=== PATIENT | female | born 1955 | race Caucasian/White ===

== ENCOUNTER 2021-03-08 23:56 | Observation (INO) | payer MEDICARE, BC, SELFPAY ==
--- NOTE | 2021-03-08 | ECG_ITS ---
APPROVED REPORT Exam: Resting ECG HR:83 bpm ECG Measurements Heart Rate 83 AXES NC 186 P 54 QRSd 86 QRS -25 QT 374 T 48 QTc 439 Conclusion Sinus rhythm with marked sinus arrhythmia Late R wave progression Abnormal ECG Electronically signed by : Jono Greco MD 03/09/2021 12:10:47
[2021-03-08 23:56] VITALS: BP 150/97; PULSE 96; RESP 24; TEMP 36.9; O2SAT 87; BMI 25.0
[2021-03-08 23:57] VITALS: BMI 25.0
--- NOTE | 2021-03-08 23:58 | XR_ITS ---
PROCEDURE INFORMATION: Exam: XR Chest Exam date and time: 03/08/2021 11:58 PM Age: 65 years old Clinical indication: Dyspnea; Patient HX: SOA TECHNIQUE: Imaging protocol: XR of the chest. Views: 1 view. COMPARISON: CT ANGIO CHEST PE PROTOCOL 03/09/2021 12:43 AM FINDINGS: Lungs: Emphysema. Granulomatous change. No consolidation. Pleural spaces: Unremarkable. No pleural effusion. No pneumothorax. Heart/Mediastinum: Unremarkable. No cardiomegaly. Bones/joints: Unremarkable. IMPRESSION: No acute findings.
--- NOTE | 2021-03-08 23:58 | CT_ITS ---
PROCEDURE INFORMATION: Exam: CTA Chest With Contrast Exam date and time: 03/08/2021 11:58 PM Age: 65 years old Clinical indication: Dyspnea; Patient HX: SOA TECHNIQUE: Imaging protocol: Computed tomographic angiography of the chest with contrast. 3D rendering (Not supervised by radiologist): MIP and/or 3D reconstructed images were created by the technologist. Radiation optimization: All CT scans at this facility use at least one of these dose optimization techniques: automated exposure control; mA and/or kV adjustment per patient size (includes targeted exams where dose is matched to clinical indication); or iterative reconstruction. Contrast material: ISOVUE; Contrast volume: 75 ml; Contrast route: INTRAVENOUS (IV); COMPARISON: No relevant prior studies available. FINDINGS: Pulmonary arteries: Normal. No pulmonary emboli. Aorta: Unremarkable. No aortic aneurysm. No aortic dissection. Lungs: There is bronchiolar and bronchi wall thickening findings concerning for bronchitis. Scattered atelectasis bilaterally. No pneumonia. Pleural spaces: Unremarkable. No pneumothorax. No pleural effusion. Heart: Unremarkable. No cardiomegaly. No pericardial effusion. Lymph nodes: Small mediastinal and right hilar lymph nodes Intraperitoneal space: Upper abdomen reveals partially imaged cystic lesion. Bones/joints: Unremarkable. No acute fracture. Soft tissues: Unremarkable. IMPRESSION: 1. No pulmonary embolism. 2. No pneumonia. 3. Probable bronchitis. 4. Upper abdomen reveals partially imaged cystic area in the abdomen. Please refer to abdomen pelvis CT done the same day for details
[2021-03-09] VITALS (18 sets, daily range): BP systolic 135–202; BP diastolic 71–106; PULSE 70–92; RESP 17–22; TEMP 36.6–37; O2SAT 90–97; BMI 24.5
[2021-03-09 00:10] LABS: Coronavirus 19, PCR Not Detected (NotDetected); Influenza A, PCR Not Detected (NotDetected); Influenza B, PCR Not Detected (NotDetected)
[2021-03-09 00:14] LABS: Basophils # 0.2 K/mm3 (0-0.2); Basophils % 1.9 % (0.1-2.0); Eosinophils # 0.2 K/mm3 (0.0-0.4); Eosinophils % 1.8 % (0.1-12.0); Hematocrit 42.2 % (37.0-47.0); Hemoglobin 14.1 g/dL (12.2-16.2); Lymphocytes # 2.9 K/mm3 (0.7-4.5); Lymphocytes % 25.5 % (10-50); Mean Corpuscular HGB Conc 33.5 g/dL (31.8-35.4); Mean Corpuscular Hemoglobin 30.2 pg (27.0-31.2); Mean Platelet Volume 8.5 fl (7.4-10.4); Monocytes # 0.4 K/mm3 (0.1-1.0); Monocytes % 3.5 % (1.7-9.3); Neutrophils # 7.5 K/mm3 (1.8-7.8); Neutrophils % 67.3 % (37.0-80.0); Platelet Count 317 K/mm3 (142-424); Red Blood Count 4.68 M/mm3 (4.20-5.40); Red Cell Distribution Width 14.2 % (11.5-17.5); White Blood Count 11.2 K/mm3 (4.8-10.8)
[2021-03-09 00:17] LABS: Chloride 98 mmol/L (98-107); Potassium 3.9 mmoL/L (3.5-5.1); Sodium 139 mmol/L (136-145)
[2021-03-09 00:20] LABS: Alanine Aminotransferase 7 U/L (12-78); Albumin Level 4.6 g/dl (3.5-5.0); Albumin/Globulin Ratio 1.3 (1.1-1.8); Alkaline Phosphatase 88 U/L (38-126); Anion Gap 12.9 mEq/L (5-15); Aspartate Amino Transferase 23 U/L (14-36); Bilirubin,Total 0.3 mg/dl (0.2-1.3); Blood Urea Nitrogen 13 mg/dl (7-17); Calcium 10.1 mg/dl (8.4-10.2); Carbon Dioxide 32 mmol/L (22.0-30.0); Creatinine Clearance Estimated 63 mL/min (50-200); Estimated Glomerular Filt Rate 72 ml/min (>60); GFR (African American) 87 ML/MIN (>60); Globulin 3.5 g/dL (1.3-3.2); Glucose 148 mg/dl (74-100); Total Protein,Serum 8.1 g/dl (6.3-8.2)
[2021-03-09 00:21] LABS: Lactic Acid 0.7 mmol/L (0.7-2.1)
[2021-03-09 00:22] LABS: ABG HCO3 27.6 mmhg (22.0-26.0); ABG Oxygen Saturation 91 % (90-100); ABG PH 7.42 mmol/L (7.35-7.45); ABG PO2 57.9 mmhg (80-100); ABG TCO2 28.9 mmhg (23-27)
[2021-03-09 00:23] LABS: Allen's Test Y; Oxygen 2 %; Source R/R
[2021-03-09 00:26] LABS: C-Reactive Protein 26.8 mg/L (0-4)
--- NOTE | 2021-03-09 00:37 | HMH.EDSOB ---
ED Disposition Clinical Impression: Acute exacerbation of chronic obstructive airways disease, Pelvic mass in female, SIRS (systemic inflammatory response syndrome), Tobacco use Disposition: Admitted As Inpatient Condition on Discharge: Good - Critical Care Critical Care Time: No Attestation: On , the high probability of a clinically significant, sudden or life threatening deterioration of the following system(s) required my full and direct attention, intervention and personal management. The time I documented below is in addition to time spent performing reported procedures but includes the following listed in this critical care notation. Medical Decision Making - Medical Records Medical records reviewed: Yes: I reviewed the patient's medical records. - Ones[place] Inquiry Pt receiving controlled substance: No Vital Signs: 03/08/21 23:56 03/09/21 00:11 03/09/21 00:31 Temperature 98.5 F Temperature Source Oral Pulse Rate 74 92 H Pulse Rate [Right] 96 H Respiratory Rate 24 17 17 Blood Pressure 151/92 H Blood Pressure [Right Arm] 150/97 H Blood Pressure Mean 108 Blood Pressure Mean [Right Arm] 114 Blood Pressure Source [Right Arm] Automatic Cuff 02 Sat by Pulse Oximetry 87 L 92 L 90 L Oxygen Delivery Method Room Air Nasal Cannula Nasal Cannula Oxygen Flow Rate (LPM) 2 2 03/09/21 01:28 03/09/21 01:30 03/09/21 02:01 Temperature Temperature Source Pulse Rate 75 Pulse Rate [Right] Respiratory Rate 17 19 Blood Pressure 175/96 H 202/106 H 197/94 H Blood Pressure [Right Arm] Blood Pressure Mean 116 138 128 Blood Pressure Mean [Right Arm] Blood Pressure Source [Right Arm] 02 Sat by Pulse Oximetry 91 L 90 L 90 L Oxygen Delivery Method Nasal Cannula Nasal Cannula Nasal Cannula Oxygen Flow Rate (LPM) 2 2 2 03/09/21 02:31 Temperature Temperature Source Pulse Rate 80 Pulse Rate [Right] Respiratory Rate 19 Blood Pressure 154/83 H Blood Pressure [Right Arm] Blood Pressure Mean 106 Blood Pressure Mean [Right Arm] Blood Pressure Source [Right Arm] 02 Sat by Pulse Oximetry 91 L Oxygen Delivery Method Nasal Cannula Oxygen Flow Rate (LPM) 2 - Lab Data Lab results reviewed: Yes: I reviewed the patient's lab results. Lab Results 03/09/21 00:00: WBC 11.2 H, RBC 4.68, Hgb 14.1, Hct 42.2, MCV 90.0, MCH 30.2, MCHC 33.5, RDW 14.2, Plt Count 317, MPV 8.5, Neut % (Auto) 67.3, Lymph % (Auto) 25.5, Newton % (Auto) 3.5, Eos % (Auto) 1.8, Baso % (Auto) 1.9, Neut # (Auto) 7.5, Lymph # (Auto) 2.9, Newton # (Auto) 0.4, Eos # (Auto) 0.2, Baso # (Auto) 0.2, ESR 73 H 03/09/21 00:00: Sodium 139, Potassium 3.9, Chloride 98, Carbon Dioxide 32 H, Anion Gap 12.9, BUN 13, Creatinine 0.80, Estimated Creat Clear 63, Estimated GFR 72, Est GFR ( Amer) 87, Glucose 148 H, Calcium 10.1, Total Bilirubin 0.3, AST 23, ALT 7 L, Alkaline Phosphatase 88, Troponin I < 0.01, C-Reactive Protein 26.8 H, Total Protein 8.1, Albumin 4.6, Globulin 3.5 H, Albumin/Globulin Ratio 1.3, Procalcitonin 0.046 03/09/21 00:00: SARS-CoV-2 (PCR) Not detected, Influenza A Untype (PCR) Not detected, Influenza Type B (PCR) Not detected 03/09/21 00:00: Lactate 0.7 03/09/21 00:15: Specimen Source R/r, O2 % 2, ABG pH 7.42, ABG pCO2 44.0, ABG pO2 57.9 L, ABG HCO3 27.6 H, ABG Total CO2 28.9 H, ABG O2 Saturation 91, ABG Base Excess 3.0 H, Sergio Test Y 03/09/21 02:41: Urine Color Yellow, Urine Appearance Clear, Urine pH 7.0, Ur Specific Rowdy 1.010, Urine Protein Negative, Urine Glucose (UA) Negative, Urine Ketones Trace, Urine Blood Trace-l, Urine Nitrate Negative, Urine Bilirubin Negative, Urine Urobilinogen 0.2, Ur Leukocyte Esterase Negative, Urine RBC 3-5, Urine Bacteria Trace Result diagrams: 03/09/21 00:00 03/09/21 00:00 Orders (Tests/Meds): ED MEDICATIONS Discontinued Medications Generic Name Dose Route Start Last Admin Trade Name Freq PRN Reason Stop Dose Admin Iopamidol 75 ml 03/09/21 01:12 03/09/21 01:13 Io
[2021-03-09 00:45] LABS: Troponin I < 0.01 ng/ml (0.00-0.034)
--- NOTE | 2021-03-09 00:55 | CT_ITS ---
PROCEDURE INFORMATION: Exam: CT Abdomen And Pelvis With Contrast Exam date and time: 03/09/2021 12:55 AM Age: 65 years old Clinical indication: Other: Abnormal cta chest; Patient HX: Abd cta chest TECHNIQUE: Imaging protocol: Computed tomography of the abdomen and pelvis with contrast. 3D rendering (Not supervised by radiologist): MIP and/or 3D reconstructed images were created by the technologist. Radiation optimization: All CT scans at this facility use at least one of these dose optimization techniques: automated exposure control; mA and/or kV adjustment per patient size (includes targeted exams where dose is matched to clinical indication); or iterative reconstruction. Contrast material: ISOVUE; Contrast volume: 75 ml; Contrast route: IV; COMPARISON: No relevant prior studies available. FINDINGS: Liver: Normal. No mass. Gallbladder and bile ducts: Normal. No calcified stones. No ductal dilation. Pancreas: Normal. No ductal dilation. Spleen: Normal. No splenomegaly. Adrenal glands: Normal. No mass. Kidneys and ureters: There is mild right hydronephrosis and ureteral dilatation but no stones in the ureter or in the bladder. These findings could be due to ureteral obstruction from the large cystic pelvic lesion. Left kidney within normal range. Stomach and bowel: Unremarkable. No obstruction. No mucosal thickening. Appendix: No evidence of appendicitis. Intraperitoneal space: Unremarkable. No free air. No significant fluid collection. Vasculature: Unremarkable. No abdominal aortic aneurysm. Lymph nodes: Unremarkable. No enlarged lymph nodes. Urinary bladder: Unremarkable as visualized. Reproductive: There is a 17 by 16 by 16 cm cystic lesion in the abdomen and pelvis likely relating to the left ovary. This is concerning for ovarian malignancy. Hysterectomy. Bones/joints: Unremarkable. No acute fracture. Soft tissues: Unremarkable. IMPRESSION: 1. There is a 17 x 16 x 16 cm cystic lesion in the abdomen and pelvis likely relating to the left ovary. This is concerning for ovarian malignancy. 2. There is mild right hydronephrosis and ureteral dilatation but no stones in the ureter or in the bladder. These findings could be due to ureteral obstruction from the large cystic pelvic lesion
[2021-03-09 00:56] LABS: Erythrocyte Sedimentation Rate 73 mm/hr (0-30)
[2021-03-09 01:22] LABS: Procalcitonin 0.046 ng/mL (0.0-2.0)
--- NOTE | 2021-03-09 03:03 | PC.NURSE ---
Dr. Ramos s/w Dr. Marie
[2021-03-09 03:08] LABS: Microscopic, Urine URINE MICROSCOPIC (MICROSCOPIC)
[2021-03-09 03:10] LABS: Appearance,Urine CLEAR (Clear); Bilirubin,Urine Negative (Negative); Blood, Urine TRACE-L (Negative); Color,Urine YELLOW (Yellow); Glucose,Urine (UA) Negative (Negative); Ketones,Urine TRACE (Negative); Leukocyte Esterase,Urine Negative (Negative); Nitrate,Urine Negative (Negative); Protein,Urine Negative (Negative); Urobilinogen,Urine 0.2 EU/dl (0.2)
[2021-03-09 03:22] LABS: Bacteria,Urine Trace /lpf
[2021-03-09 03:40] LABS: Troponin I < 0.01 ng/ml (0.00-0.034)
--- NOTE | 2021-03-09 04:12 | PC.NURSE ---
PT ARRIVED TO FLOOR VIA W/C FROM ED W/STAFF @ [id number]
[2021-03-09 06:40] LABS: Troponin I < 0.01 ng/ml (0.00-0.034)
--- NOTE | 2021-03-09 08:00 | US_ITS ---
PROCEDURE: US PELVIC CLINICAL INDICATION: pelvic mass COMPARISON: CT CT ABDOMEN PELVIS W CON from 03/09/2021 FINDINGS: A large complex cystic pelvic mass is present measuring 22 x 1.8 by 1.7 cm. The mass is midline and mostly cystic. There is some nodular thickening along the peripheral aspect of the lesion and along the posterior aspect of the lesion. There are some low level echoes within the mass. Ovarian origin neoplasm is considered. What appears to represent the uterus is small measuring 4 x 3 cm. Cannot adequately determine which side the mass rises from or if it is ovarian or uterine in origin, suspect ovarian. Pelvic MRI without and with contrast may aid for further evaluation. No cul-de-sac fluid demonstrated although there did appear be a small amount fluid posterior to the mass on the recent CT scan. IMPRESSION: Complex cystic pelvic mass suspicious for neoplasm suspect ovarian in origin but unable to determine if it is right or left ovary or even possibly the uterus. Therefore, would recommend MRI of the pelvis without and with gadolinium enhancement for more thorough evaluation. Dictated by: Sergio Landon MD 03/09/2021 10:48 Sergio Landon MD in OV 03/09/2021 10:48
--- NOTE | 2021-03-09 08:19 | HMH.PHAINT ---
MEDICATION RECONCILIATION COMPLETE USING EXTERNAL PHARMACY FILL HISTORY AND OTIS REPORT.
--- NOTE | 2021-03-09 08:21 | HMH.PHAVTE ---
[facility] Pharmacy VTE Monitoring - Patient Demographics Allergies/Adverse Reactions: Patient Allergies No Known Allergies Allergy (Verified 03/09/21 04:23) Height: 1.7 m Weight: 70.76 kg Patient Problems: Current Active Problems Acute exacerbation of chronic obstructive airways disease (Acute) Pelvic mass in female (Acute) SIRS (systemic inflammatory response syndrome) (Acute) Tobacco use (Acute) - VTE Risk Labs: VTE Related Lab Results Hgb 14.1 g/dL (12.2-16.2) 03/09/21 00:00 Hct 42.2 % (37.0-47.0) 03/09/21 00:00 Plt Count 317 K/mm3 (142-424) 03/09/21 00:00 BUN 13 mg/dl (7-17) 03/09/21 00:00 Creatinine 0.80 mg/dl (0.52-1.04) 03/09/21 00:00 Estimated Creat Clear 63 mL/min (50-200) 03/09/21 00:00 Was VTE Risk Assessment Performed: Yes VTE Score: 6 VTE Risk Level: Moderate Risk Clinical Trial Participant: No - Prophylaxis VTE Prophylaxis Ordered?: Yes Types of VTE Prophylaxis: TEDS Knee High Location of Applied Device: Bilateral Lower Extremeties
--- NOTE | 2021-03-09 09:10 | P.HP_ITS ---
*Admission Date: 03/09/21 <Tamra Umana 03/09/21 09:17> *Chief complaint: SOA <Tamra Umana 03/09/21 09:17> *History of present illness: Ms. Camp is a 65-year-old female with a history of hypertension who is from [place]. Her family physician is located in [place] and [place] was in [place] a second home when she became short of breath. She states the shortness of breath started approximately 2 days ago and continued to get worse. She has never had an episode like this in the past. She ended up calling the ambulance to transport her to the hospital. She was given a breathing treatment in the ER which did seem to help. She was also placed on oxygen. She denies any history of respiratory illness. She has smoked for over 30 years. She had a chest CTA showing no PE and no pneumonia. Her upper abdomen revealed a partially imaged cystic area and an abdomen and pelvic CT was recommended. The CT of her abdomen and pelvis showed a 17 x 16 x 16 cm cystic lesion in the abdomen and pelvis likely relating to the left ovary concerning for ovarian malignancy. There was mild right hydronephrosis and ureteral dilatation but no stones in the ureter the bladder. These findings were felt due to ureteral obstruction from the large cystic pelvic lesion. The patient was admitted and started on duo nebs as well as Levaquin and steroids. ENERGY DIRECTOR was consulted for the ovarian mass. <Tamra Umana 03/09/21 09:17> [facility] History I have reviewed the patient's past medical history: Yes <Tamra Umana 03/09/21 09:17> Medical History: Reports:: Hypertension Denies:: Cancer, Diabetes Mellitus Type 1, Diabetes Mellitus Type 2, MRSA <Tamra Umana 03/09/21 09:17> *Have you ever received a pneumonia vaccine?: Yes <Tamra Umana 03/09/21 09:17> *Have you received a flu vaccine this season?: Yes <Tamra Umana 03/09/21 09:17> Amputation: No <Tamra Umana 03/09/21 09:17> Fractures: Yes <Tamra Umana 03/09/21 09:17> - *Social History Smoking Status: Current every day smoker <Hasmukh Umanaa - 03/09/21 09:17> [facility]: [facility] 03/09/[facility] 09:17> # Packs/Day (cigarettes): 2 <[facility] 03/09/21 09:17> Alcohol Intake: never <[facility] 03/09/21 09:17> *Occupational Status:: retired <[facility] 03/09/21 09:17> *Travel in the last 8 weeks: None <[facility] 03/09/21 09:17> Family Hx:: Coronary Artery Disease, Heart Attack, Hypertension, Stroke <[facility] 03/09/21 09:17> Review of Systems - Constitutional Denies chills, Denies fever(s), Denies weakness [facility] 03/09/21 09:17> - Eyes Denies blurry vision, Denies double vision <[facility] 03/09/21 09:17> - ENT Denies nasal congestion, Denies sore throat <[facility] 03/09/21 09:17> - *Cardiovascular Reports shortness of breath, Denies chest pain <[facility] 03/09/21 09:17> - *Respiratory Reports shortness of breath, Denies cough <[facility] 03/09/21 09:17> - *Gastrointestinal Denies abdominal pain, Denies loose stools, Denies nausea, Denies vomiting <[facility] 03/09/21 09:17> - *Genitourinary Denies difficulty urinating, Denies painful urination <[facility] 03/09/21 09:17> - *Musculoskeletal Denies joint pain <[facility] 03/09/21 09:17> - *Neurologic Reports weakness, Denies headache(s), Denies seizure-like activity, Denies dizziness <[facility] 03/09/21 09:17> Meds Home Medications Medication Instructions Recorded Confirmed Type Amlodipine Besylate [Norvasc 5mg 5 mg PO DAILY 1
--- NOTE | 2021-03-09 09:10 | HMH.HP ---
*Admission Date: 03/09/21 <Tamra Umana 03/09/21 09:17> *Chief complaint: SOA <Tamra Umana 03/09/21 09:17> *History of present illness: Ms. Camp is a 65-year-old female with a history of hypertension who is from [place]. Her family physician is located in [place] and [place] was in [place] second home when she became short of breath. She states the shortness of breath started approximately 2 days ago and continued to get worse. She has never had an episode like this in the past. She ended up calling the ambulance to transport her to the hospital. She was given a breathing treatment in the ER which did seem to help. She was also placed on oxygen. She denies any history of respiratory illness. She has smoked for over 30 years. She had a chest CTA showing no PE and no pneumonia. Her upper abdomen revealed a partially imaged cystic area and an abdomen and pelvic CT was recommended. The CT of her abdomen and pelvis showed a 17 x 16 x 16 cm cystic lesion in the abdomen and pelvis likely relating to the left ovary concerning for ovarian malignancy. There was mild right hydronephrosis and ureteral dilatation but no stones in the ureter the bladder. These findings were felt due to ureteral obstruction from the large cystic pelvic lesion. The patient was admitted and started on duo nebs as well as Levaquin and steroids. SEED SALES MANAGER was consulted for the ovarian mass. <Tamra Umana 03/09/21 09:17> [facility] History I have reviewed the patient's past medical history: Yes <Tamra Umana 03/09/21 09:17> Medical History: Reports:: Hypertension Denies:: Cancer, Diabetes Mellitus Type 1, Diabetes Mellitus Type 2, MRSA <Tamra Umana 03/09/21 09:17> *Have you ever received a pneumonia vaccine?: Yes <Tamra Umana 03/09/21 09:17> *Have you received a flu vaccine this season?: Yes <Tamra Umana 03/09/21 09:17> Amputation: No <Tamra Umana 03/09/21 09:17> Fractures: Yes <Tamra Umana 03/09/21 09:17> - *Social History Smoking Status: Current every day smoker <[facility] 03/09/21 09:17> Tobacco Type: cigarettes [facility] 03/09/21 09:17> # Packs/Day (cigarettes): 2 <[facility] 03/09/21 09:17> Alcohol Intake: never <Tamra Umana 03/09/21 09:17> *Occupational Status:: retired <[facility] 03/09/21 09:17> *Travel in the last 8 weeks: None <Tamra Umana 03/09/21 09:17> Family Hx:: Coronary Artery Disease, Heart Attack, Hypertension, Stroke <[facility] 03/09/21 09:17> Review of Systems - Constitutional Denies chills, Denies fever(s), Denies weakness <LyndsayTamra 03/09/21 09:17> - Eyes Denies blurry vision, Denies double vision <Hasmukh Umanaa 03/09/21 09:17> - ENT Denies nasal congestion, Denies sore throat [facility] 03/09/21 09:17> - *Cardiovascular Reports shortness of breath, Denies chest pain <[facility] 03/09/21 09:17> - *Respiratory Reports shortness of breath, Denies cough <[facility] 03/09/21 09:17> - *Gastrointestinal Denies abdominal pain, Denies loose stools, Denies nausea, Denies vomiting <[facility] 03/09/21 09:17> - *Genitourinary Denies difficulty urinating, Denies painful urination <[facility] 03/09/21 09:17> - *Musculoskeletal Denies joint pain <[facility] 03/09/21 09:17> - *Neurologic Reports weakness, Denies headache(s), Denies seizure-like activity, Denies dizziness <Hasmukh Umanaa 03/09/21 09:17> Meds Home Medications Medication Instructions Recorded Confirmed Type Amlodipine Besylate [Norvasc 5mg 5 mg PO DAILY 03/09/21 03/09/21 History tablet] Ergocalciferol (Vitamin D2) 50,000 unit PO WEEKLY 03/09/21 03/09/21 History [Drisdol 50,000 units (1.25mg) capsule] Gabapentin [Neurontin 600mg 600 mg PO TID 03/09/21 03/09/21 History tablet] Ibuprofen [Ibuprofen 800mg 800 mg PO TIDP PRN 03/09/21 03/09/21 History Tablet] Losartan Potassium [Cozaar 100
--- NOTE | 2021-03-09 12:19 | HMH.GYNCON ---
CROZE CUTTER - CN: HPI - Data of Consult Patient: new to practice Requesting Physician: Jean Marie MD Primary Care Provider: Referral Provider, MD - Consult Narrative Reason for consult: pelvic mass History of present illness: Ms. 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 history significant for infertility of uncertain etiology She denies any previous CROZE CUTTER surgery, pelvic infections or abnormal pap smear/dysplasia No known family history of breast, uterine or ovarian cancer She is uncertain about last pap smear or CROZE CUTTER care, but states it has been 10+ years She was admitted after acute onset of shortness of breath while visiting family She denies any known chronic lung conditions but notes that she frequently has shortness of breath after climbing stairs to her 3rd floor apartment; this has been an ongoing issue for many months She reports that she had complaints of abdominal pain a few months ago but attributed this to new medication started by pcp for hypertension Her medication was changed and the pain resolved at that time She denies any recent abdominal pain, nausea/vomiting, constipation/diarrhea, weight loss/gain She does note some early satiety after meals but attributed that to getting older and cannot specify the time period for this change She did not notice any changes in abdominal girth but notes that a friend of hers recently remarked about such a change She denies any vaginal bleeding or pelvic pain As part of evaluation at admission, pelvic mass was noted on CT [id number] Origin was unclear but ovarian origin suspected Pelvic ultrasound detailed [id number] complex cystic pelvic mass with nodular thickening and low level echos within the mass Ovarian origin suspected, but side of origin could not be determined What appears to be the uterus (inferior to the mass) measured 4x3cm CC: Jean Marie MD Review of Systems - Review of Systems Review of systems:: pertinent systems reviewed and negative unless documented below - Constitutional Reports malaise, Denies chills, Denies fever(s), Denies weight gain, Denies weight loss - *Respiratory Reports cough, Reports shortness of breath - *Gastrointestinal Reports feeling full early, Denies abdominal pain, Denies change in bowel habits, Denies nausea, Denies vomiting - *Genitourinary Denies abnormal vaginal bleeding, Denies pelvic pain - *Neurologic Reports weakness, Denies headache(s), Denies seizure-like activity, Denies dizziness [facility] History I have reviewed the patient's past medical history: Yes Medical History: Reports:: Hypertension Denies:: Cancer, Diabetes Mellitus Type 1, Diabetes Mellitus Type 2, MRSA *Have you ever received a pneumonia vaccine?: Yes *Have you received a flu vaccine this season?: Yes Amputation: No Fractures: Yes - *Social History Smoking Status: Current every day smoker Tobacco Type: cigarettes # Packs/Day (cigarettes): 2 Alcohol Intake: never *Occupational Status:: retired *Travel in the last 8 weeks: None Family Hx:: Coronary Artery Disease, Heart Attack, Hypertension, Stroke STONE CARRIAGE OPERATOR history: No STONE CARRIAGE OPERATOR history : 0 LMP comments: post menopausal Meds Home Medications Medication Instructions Recorded Confirmed Type Amlodipine Besylate [Norvasc 5mg 5 mg PO DAILY 03/09/21 03/09/21 History tablet] Ergocalciferol (Vitamin D2) 50,000 unit PO WEEKLY 03/09/21 03/09/21 History [Drisdol 50,000 units (1.25mg) capsule] Gabapentin [Neurontin 600mg 600 mg PO TID 03/09/21 03/09/21 History tablet] Ibuprofen [Ibuprofen 800mg 800 mg PO TIDP PRN 03/09/21 03/09/21 History Tablet] Losartan Potassium [Cozaar 100mg 100 mg PO DAILY 03/09/21 03/09/21 History Tablets] Oxycodone HCl 15 mg PO QID 03/09/21 03/09/21 History Allergies Allergy/AdvReac Type Severity Reaction Status Date / Time No Known Allergies Allergy Verified 03/09/21 04
--- NOTE | 2021-03-09 12:41 | PC.NURSE ---
Productive cough. Specimen cup left at bedside, did not produce enough sputum.
[2021-03-10 03:53] VITALS: BP 132/65; PULSE 68; RESP 18; TEMP 36.4; O2SAT 94
[2021-03-10 04:00] VITALS: PULSE 70
[2021-03-10 05:00] VITALS: BMI 24.7
[2021-03-10 05:40] VITALS: PULSE 62; O2SAT 96
--- NOTE | 2021-03-10 06:34 | PC.NURSE ---
Pt remains on 2L-NC with O2 >90%. Pt has c/o of pain in right leg x2 this shift, admin meds per MAR with relief. Call light within reach.
[2021-03-10 07:55] VITALS: BP 152/74; PULSE 71; RESP 20; TEMP 36.4; O2SAT 94
[2021-03-10 08:00] VITALS: PULSE 79; O2SAT 94
--- NOTE | 2021-03-10 08:02 | PC.NURSE ---
Room air sat = 94%
--- NOTE | 2021-03-10 08:51 | HMH.ACPN2 ---
<Tamra Umana - Last Filed: 03/10/21 08:55> Internal Medicine - PN: Subj *Date: 03/10/21 *Time: 08:55 Interval history: Patient states she is feeling better today. Her oxygen was 95 on room air this morning. She states her wheezing has improved. She has been able to get up and go to the bathroom did eat some breakfast this morning. She is anxious to go home. Exam Vital signs and Labs for Last 24 Hours: Temp Pulse Resp BP Pulse Ox 97.5 F L 71 20 152/74 H 94 L 03/10/21 07:55 03/10/21 07:55 03/10/21 07:55 03/10/21 07:55 03/10/21 08:00 I & O for Last 24 hours: Intake & Output 03/07/21 03/08/21 03/09/21 03/10/21 11:59 11:59 11:59 11:59 Intake Total 100 / 100 960 / 960 Balance 100 / 100 960 / 960 Weight 156 lb 158 lb 1 oz Microbiology Reports for the Last 24 Hours: Microbiology 03/10/21 05:40 Sputum - Expectorated Sputum Gram Stain - Final 03/09/21 00:00 Blood Blood Culture - Preliminary - Constitutional no acute distress - *Routine Respiratory Exam Present: rhonchi (improving), wheezes - *Routine Cardiovascular Exam Present: RRR - *Routine Abdominal Exam Present: soft, normoactive bowel sounds, tenderness (around abdominal mass) - *Routine Extremities Exam Absent: cyanosis, clubbing, edema - *Routine Skin Exam Present: warm. Absent: rash - *Routine Neurological Exam Present: alert, oriented X3 Assessment and Plan (1) Acute exacerbation of chronic obstructive airways disease Status: Acute Category: Medical Code(s): J44.1 - Chronic obstructive pulmonary disease with (acute) exacerbation (2) Pelvic mass in female Status: Acute Category: Medical Code(s): R19.00 - Intra-abdominal and pelvic swelling, mass and lump, unspecified site (3) Tobacco use Status: Chronic Category: Social Hx Code(s): Z72.0 - Tobacco use (4) Hypertension Status: Chronic Category: Medical Code(s): I10 - Essential (primary) hypertension (5) SIRS (systemic inflammatory response syndrome) Status: Chronic Category: Medical Code(s): R65.10 - Systemic inflammatory response syndrome (SIRS) of non-infectious origin without acute organ dysfunction - Assessment and plan all Dx Assessment and Plan for all problems:: Dr. Hinds's note was reviewed. The patient prefers to follow-up with her family care doctor and receive a referral from there to [facility]/oncology. She is stable to be discharged home today on Levaquin, steroids, and duo nebs. <Jean Marie - Last Filed: 03/10/21 09:41> Internal Medicine - PN: Subj *Date: 03/10/21 *Time: 09:39 Exam Vital signs and Labs for Last 24 Hours: Temp Pulse Resp BP Pulse Ox 97.5 F L 71 20 152/74 H 94 L 03/10/21 07:55 03/10/21 07:55 03/10/21 07:55 03/10/21 07:55 03/10/21 08:00 I & O for Last 24 hours: Intake & Output 03/07/21 03/08/21 03/09/21 03/10/21 11:59 11:59 11:59 11:59 Intake Total 100 / 100 960 / 960 Balance 100 / 100 960 / 960 Weight 156 lb 158 lb 1 oz Microbiology Reports for the Last 24 Hours: Microbiology 03/10/21 05:40 Sputum - Expectorated Sputum Gram Stain - Final 03/09/21 00:00 Blood Blood Culture - Preliminary Assessment and Plan (1) Acute exacerbation of chronic obstructive airways disease Status: Acute Category: Medical Code(s): J44.1 - Chronic obstructive pulmonary disease with (acute) exacerbation (2) Pelvic mass in female Status: Acute Category: Medical Code(s): R19.00 - Intra-abdominal and pelvic swelling, mass and lump, unspecified site (3) Tobacco use Status: Chronic Category: Social Hx Code(s): Z72.0 - Tobacco use (4) Hypertension Status: Chronic Category: Medical Code(s): I10 - Essential (primary) hypertension (5) SIRS (systemic inflammatory response syndrome) Status: Chronic Category: Medical Code(s): R65.10 - Systemic inflammatory response syndrome (SIRS) of non-infectious origin without a
--- NOTE | 2021-03-10 11:57 | HMH.DCSUM ---
General - General Admission date:: 03/09/21 <Jean Marie - 05/03/21 18:01> 03/09/21 <Tamra Umana - 03/10/21 12:00> Discharge date: 03/10/21 <Tamra Umana - 03/10/21 12:00> HPI HPI: Ms. Camp is a 65-year-old female with a history of hypertension who is from [place]. Her family physician is located in [place] and she was in [place] visiting a second home when she became short of breath. She states the shortness of breath started approximately 2 days ago and continued to get worse. She has never had an episode like this in the past. She ended up calling the ambulance to transport her to the hospital. She was given a breathing treatment in the ER which did seem to help. She was also placed on oxygen. She denies any history of respiratory illness. She has smoked for over 30 years. She had a chest CTA showing no PE and no pneumonia. Her upper abdomen revealed a partially imaged cystic area and an abdomen and pelvic CT was recommended. The CT of her abdomen and pelvis showed a 17 x 16 x 16 cm cystic lesion in the abdomen and pelvis likely relating to the left ovary concerning for ovarian malignancy. There was mild right hydronephrosis and ureteral dilatation but no stones in the ureter the bladder. These findings were felt due to ureteral obstruction from the large cystic pelvic lesion. The patient was admitted and started on duo nebs as well as Levaquin and steroids. [employer] was consulted for the ovarian mass. <Tamra Umana - 03/10/21 12:00> Hospital Course Hospital Course: The patient was admitted and started on oxygen, antibiotics, steroids, and neb treatments. Dr. Hinds was consulted for pelvic mass. She felt this was most likely a malignant mass and she would need referral to [facility] for surgical management. The patient preferred to see her family physician and have referral to someone in [facility]. By 03/10/2021 she was feeling better. Her oxygen was 95% on room air and her wheezing had improved. She was anxious to be discharged home. She was stable to discharge on Levaquin, steroids, and duo nebs. She will follow-up with her family doctor in [facility]. <Tamra Umana - 03/10/21 12:00> Objective Vital signs: Temp Pulse Resp BP Pulse Ox 97.5 F L 79 20 152/74 H 94 L 03/10/21 07:55 03/10/21 08:00 03/10/21 07:55 03/10/21 07:55 03/10/21 08:00 <Jean Marie - 05/03/21 18:01> Temp Pulse Resp BP Pulse Ox 97.5 F L 79 20 152/74 H 94 L 03/10/21 07:55 03/10/21 08:00 03/10/21 07:55 03/10/21 07:55 03/10/21 08:00 <Tamra Umana - 03/10/21 12:00> Narrative: - Constitutional no acute distress - *Routine Respiratory Exam Present: rhonchi (improving), wheezes - *Routine Cardiovascular Exam Present: RRR - *Routine Abdominal Exam Present: soft, normoactive bowel sounds, tenderness (around abdominal mass) - *Routine Extremities Exam Absent: cyanosis, clubbing, edema - *Routine Skin Exam Present: warm. Absent: rash - *Routine Neurological Exam Present: alert, oriented X3 <Tamra Umana - 03/10/21 12:00> Results Labs on day of discharge: Preliminary micro results at discharge 03/09/21 00:00 Blood Culture - Preliminary Blood Staphylococcus epidermidis <Jean Marie Zander - 05/03/21 18:01> Preliminary micro results at discharge 03/09/21 00:00 Blood Culture - Preliminary Blood <Tamra Umana - 03/10/21 12:00> DS: Diagnosis - Discharge Diagnosis (1) Acute exacerbation of chronic obstructive airways disease Status: Acute (2) Pelvic mass in female Status: Acute (3) Tobacco use Status: Chronic (4) Hypertension Status: Chronic (5) SIRS (systemic inflammatory response syndrome) Status: Chronic <Tamra Umana - 03/10/21 11:57> (1) Acute exacerbation of chronic obstructive airways disease Status: Acute (2) Pelvic mass in female Stat
== END 2021-03-10 11:10 | disposition home or self-care (01) ==
LOC: ER 03-09 01:21 → 2ND 03-09 03:24
PROVIDERS: Admitting Provider Family Medicine; Emergency Provider Emergency Medicine; Visit Provider Family Medicine
DX: J44.9 Chronic obstructive pulmonary disease, unspecified (principal); Z20.822 Contact with and (suspected) exposure to COVID-19; I10 Essential (primary) hypertension; F17.210 Nicotine dependence, cigarettes, uncomplicated; R19.00 Intra-abdominal and pelvic swelling, mass and lump, unspecified site; Z79.899 Other long term (current) drug therapy
CPT/HCPCS: G0378; 36415; 71045; 71275; 74177; 76856; 80053; 81001; 82803; 83605; 84145; 84484; 85025; 85651; 86140; 87040; 87070; 87077; 87186; 87205; 93005; 94640; 94760; 94761; 96365; 99285; C9803; J1956; Q9967; U0003; U0005